=== PATIENT | male | born 1955 | race Caucasian/White ===

== ENCOUNTER → 2020-12-19 | Outpatient (CLI) | payer OTHER | LOC: HEART CORB 10:14 | DX: I10 Essential (primary) hypertension (principal); R07.2 Precordial pain; R06.00 Dyspnea, unspecified; I48.0 Paroxysmal atrial fibrillation; I49.5 Sick sinus syndrome; I07.1 Rheumatic tricuspid insufficiency; Z95.0 Presence of cardiac pacemaker; Z86.79 Personal history of other diseases of the circulatory system; Z79.82 Long term (current) use of aspirin; Z79.899 Other long term (current) drug therapy | CPT/HCPCS: 78452; 93306; A9502; J2785 ==